=== PATIENT | male | born 1980 | race American Indian/Alaskan Native ===

== ENCOUNTER 2020-05-16 06:11 | Emergency (ER) | payer OTHER ==
[2020-05-16 07:17] VITALS: BP 135/93
--- NOTE | 2020-05-16 07:32 | Emergency Department Report ---
ED N/V/D HPI - General Chief complaint: Nausea/Vomiting/Diarrhea Stated complaint: DIARRHEA/VOMITING/BODYACHE Time Seen by Provider: 05/16/20 07:27 Source: patient Mode of arrival: Ambulatory Limitations: No Limitations - History of Present Illness Initial comments: The patient was evaluated in the emergency department for symptoms described in the history of present illness. He/she was evaluated in the context of the global COVID-19 pandemic, which necessitated consideration that the patient might be at risk for infection with the virus that causes COVID-19. Institutional protocols and algorithms that pertain to the evaluation of patients at risk for COVID-19 are in a state of rapid change based on information released by regulatory bodies including the CDC and federal and state organizations. These policies and algorithms were followed during the patient's care in the emergency department. Please note that these policies, procedures and recommendations changed on a rapid basis. 39-year-old -[place] male was sent here to the emergency room from his component for medical clearance prior to the weekend duty. Patient reports that he has nausea, vomiting and tarry diarrhea. Patient denies any abdominal pain just states that his stomach is growling from hunger. Patient denies any unusual foods no concerns for food poisoning no sick contact. Patient denies any chest pain shortness of breathing or loss of taste or smell. Patient's last Covid test was 2 weeks ago and negative when he returned back from [facility]. Patient has no past medical history currently takes no medications on a daily basis and has no known drug allergies. MD complaint: nausea, vomiting, diarrhea -: This morning Description of Diarrhea: tarry Associated Abdominal Pain: Yes (growlying ) Severity: mild Pain Scale: 0 Improves with: none Worsens with: none Associated Symptoms: denies other symptoms, malaise, nausea/vomiting. denies: fever/chills, loss of appetite, shortness of breath, weakness - Related Data Allergies Allergy/AdvReac Type Severity Reaction Status Date / Time No Known Allergies Allergy Unverified 05/16/20 07:17 ED Review of Systems ROS: Stated complaint: DIARRHEA/VOMITING/BODYACHE Other details as noted in HPI Comment: All other systems reviewed and negative ED Past Medical Hx - Past Medical History Previous Medical History?: No - Surgical History Past Surgical History?: No ED Physical Exam - General Limitations: No Limitations General appearance: alert, in no apparent distress - Head Head exam: Present: atraumatic, normocephalic - Eye Eye exam: Present: normal appearance - ENT ENT exam: Present: mucous membranes moist - Neck Neck exam: Present: normal inspection - Respiratory Respiratory exam: Present: normal lung sounds bilaterally. Absent: respiratory distress - Cardiovascular Cardiovascular Exam: Present: regular rate, normal rhythm. Absent: systolic murmur, diastolic murmur, rubs, gallop - GI/Abdominal GI/Abdominal exam: Present: soft, normal bowel sounds - Back Exam Back exam: Present: normal inspection - Neurological Exam Neurological exam: Present: alert, oriented X3, normal gait - Psychiatric Psychiatric exam: Present: normal affect, normal mood - Skin Skin exam: Present: warm, dry, intact, normal color. Absent: rash ED Course Vital Signs 05/16/20 07:14 Temperature 98.8 F Pulse Rate 94 H Respiratory 18 Rate Blood Pressure 135/93 O2 Sat by Pulse 96 Oximetry ED Medical Decision Making - Medical Decision Making 39-year-old -[place] male was sent here to the emergency room from his component for medical clearance prior to the weekend duty. Patient reports that he has nausea, vomiting and tarry diarrhea. Patient denies any abdominal pain just states that his stomach is growling from hunger. Patient denies any unusual foods no concerns for food poisoning no sick contact. Patient denies any chest pain shortness of breathing or loss of taste or smell. Patient's last Covid test was 2 weeks ago and negative when he returned back from [facility]. Patient has no past medical history currently takes no medications on a daily basis and has no known drug allergies. Recommend patient to get Covid testing. Handout will be provided to patient. Critical care attestation.: If time is entered above; I have spent that time in minutes in the direct care of this critically ill patient, excluding procedure time. ED Disposition Clinical Impression: Nausea vomiting and diarrhea, Suspected 2019-nCoV infection Disposition: TO HOME OR SELFCARE Is pt being admited?: No Does the pt Need Aspirin: No Condition: Stable Instructions: Nausea and Vomiting, Adult, [id number] Additional Instructions: Recommend getting a Covid test handouts provided to patient. Referrals: Covid, testing [Other] - 3-5 Days Forms: Work/School Release Form(ED)
== END 2020-05-16 07:50 | disposition home or self-care (01) ==
LOC: ED 06:11
DX: R11.2 Nausea with vomiting, unspecified (principal); Z20.828 Contact with and (suspected) exposure to other viral communicable diseases; R19.7 Diarrhea, unspecified
CPT/HCPCS: 99281